=== PATIENT | male | born 1945 | race Hispanic/Latino ===

== ENCOUNTER 2018-08-12 07:55 | Day surgery (SDC) | payer OTHER ==
[2018-08-12 07:55] VITALS: BP 97/64
[~2018-08-12 07:55] MED LIST: ALLO100T PO; ASPI-555 PO; ATOR40TA71 PO; BISA5TAB12 PO; COLC0.6C3 PO; FURO40TA5 PO; GLIM4TAB3 PO; INSU300I SQ; LINA5TAB PO; METO-391 PO; METO5TAB7 PO; POTA-79 PO; SACU1TAB PO; multivitamin PO
[2018-08-12] MEDS ORDERED: SODIUM CHLORIDE 0.9% 1000ML 1,000 ML IV ONE (08:26)
--- NOTE | 2018-08-12 08:40 | NUR ---
PATIENT DRANK 3/4 2ND BOTTLE OF CONTRAST PROVIDED BY RADIOLOGY DEPARTMENT
[2018-08-12 11:00] VITALS: BP 113/70
--- NOTE | 2018-08-12 11:35 | NUR ---
patient transported via stretcher to CT with [facility]
--- NOTE | 2018-08-12 12:20 | NUR ---
back from CT,patient alert and oreinted, bilateral breath sounds clear to all lobes, no swelling noted to lower extremities, IV left hand site no redness, no signs of infiltration, denies pain
== END 2018-08-12 12:35 | disposition home or self-care (01) ==
LOC: DAH 07:55 → EDSTATUS 09:00 → DAH 12:35
PROVIDERS: ATTEND Urology
DX: R31.0 Gross hematuria (principal); M47.895 Other spondylosis, thoracolumbar region; N32.89 Other specified disorders of bladder; I11.0 Hypertensive heart disease with heart failure; I50.42 Chronic combined systolic (congestive) and diastolic (congestive) heart failure; I25.10 Atherosclerotic heart disease of native coronary artery without angina pectoris; K21.9 Gastro-esophageal reflux disease without esophagitis; E78.5 Hyperlipidemia, unspecified; E66.01 Morbid (severe) obesity due to excess calories; E11.40 Type 2 diabetes mellitus with diabetic neuropathy, unspecified; E11.65 Type 2 diabetes mellitus with hyperglycemia; M19.041 Primary osteoarthritis, right hand; E78.00 Pure hypercholesterolemia, unspecified; I48.91 Unspecified atrial fibrillation; Z87.440 Personal history of urinary (tract) infections; Z98.890 Other specified postprocedural states; Z90.49 Acquired absence of other specified parts of digestive tract; Z87.891 Personal history of nicotine dependence; Z95.810 Presence of automatic (implantable) cardiac defibrillator
CPT/HCPCS: 74178; 82948 ×2; 96360; 96361; A4606; J7030

== ENCOUNTER → 2019-10-06 | Outpatient (CLI) | payer OTHER ==
[~2019-10-06] MED LIST changes: -GLIM4TAB3 PO; +GLIM4TAB36 PO
== END | disposition home or self-care (01) ==
LOC: RAH 11:35
PROVIDERS: ATTEND Internal Medicine
DX: M50.321 Other cervical disc degeneration at C4-C5 level (principal); M47.812 Spondylosis without myelopathy or radiculopathy, cervical region; M48.02 Spinal stenosis, cervical region
CPT/HCPCS: 72040

== ENCOUNTER 2020-01-01 19:32 | Emergency (ER) | payer OTHER ==
[~2020-01-01 19:32] MED LIST changes: -ASPI-555 PO; +ASPI-556 PO
[2020-01-01 20:15] LABS: APPEARANCE,URINE Clear (CLEAR); BILIRUBIN,URINE Negative (NEGATIVE); COLOR,URINE Yellow (YELLOW); GLUCOSE, URINE (UA) Negative (NEGATIVE); KETONES,URINE Negative (NEGATIVE); LEUKOCYTE ESTERASE ,URINE Negative (NEGATIVE); NITRATE,URINE Negative (NEGATIVE); OCCULT BLOOD,URINE Negative (NEGATIVE); PROTEIN,URINE Negative (NEGATIVE); UROBILINOGEN,URINE 0.2 mg/dL (0.2-1.0)
[2020-01-01] MEDS ORDERED: ONDANSETRON ODT 4 MG TAB ONE (20:23)
[2020-01-01] MEDS ORDERED: HYDROCODONE/ACETAMINOPHEN 10/325 MG TAB ONE (20:24)
== END 2020-01-01 22:26 | disposition home or self-care (01) ==
LOC: EDH 19:32
DX: G89.29 Other chronic pain (principal); M54.9 Dorsalgia, unspecified; M47.896 Other spondylosis, lumbar region; E66.9 Obesity, unspecified; E11.9 Type 2 diabetes mellitus without complications; I25.10 Atherosclerotic heart disease of native coronary artery without angina pectoris; I10 Essential (primary) hypertension; E78.5 Hyperlipidemia, unspecified; Z88.0 Allergy status to penicillin; Z88.1 Allergy status to other antibiotic agents
CPT/HCPCS: 72131; 81003

== ENCOUNTER 2020-03-19 15:45 | Inpatient (IN) | payer OTHER ==
[2020-03-19] VITALS (7 sets, daily range): BP systolic 99–118; BP diastolic 63–76
[~2020-03-19] VITALS: Ht 170.2 cm; Wt 90.4 kg
[2020-03-19 16:23] LABS: BASOPHILS % (AUTO) 0.9 % (0.0-5.0); EOSINOPHILS % (AUTO) 2.5 % (0.0-8.0); HEMATOCRIT 47.8 % (42-54); LYMPHOCYTES % (AUTO) 27.6 % (21.0-51.0); MEAN CORPUSCULAR HEMOGLOBIN 30.8 pg (27.0-33.0); MEAN CORPUSCULAR HGB CONC 33.3 g/dL (32.0-36.0); MEAN CORPUSCULAR VOLUME 92.5 fL (79-99); MONOCYTES % (AUTO) 12.9 % (3.0-13.0); NEUTROPHILS % (AUTO) 55.6 % (40.0-77.0); PLATELET COUNT (AUTO) 121 K/uL (130-400); RED BLOOD CELL COUNT(AUTO) 5.17 MIL/uL (4.50-6.20); RED CELL DISTRIBUTION WIDTH 15.9 % (11.0-15.5); WHITE BLOOD COUNT (AUTO) 6.3 K/uL (4.8-10.8)
[2020-03-19] MEDS ORDERED: AMIODARONE HCL 50 MG/ML 3 ML VIAL ONE (16:38)
[2020-03-19 16:39] LABS: CREATININE 2.7 mg/dL (0.5-1.5); POTASSIUM 5.3 mmol/L (3.5-5.1)
[2020-03-19 16:46] LABS: B-TYPE NATRIURETIC PEPTIDE 2710 pg/mL (0-100); INR 1.74 (0.85-1.15); PARTIAL THROMBOPLASTIN TIME 32.5 SEC (26.3-35.5); PROTHROMBIN TIME 18.4 SEC (9.6-11.6)
[2020-03-19 16:47] LABS: ALBUMIN 3.4 g/dL (3.5-5.0); BILIRUBIN,TOTAL 2.3 mg/dL (0.2-1.0); TOTAL PROTEIN, SERUM 6.9 g/dL (6.0-8.3)
[2020-03-19] MEDS ORDERED: DEXTROSE 5%-WATER 100 ML IV ONE (16:47)
[2020-03-19] MEDS ORDERED: AMIODARONE HCL 900 MG in DEXTROSE 5%-WATER 500 ML IV NR (17:00)
[2020-03-19] MEDS ORDERED: CALCIUM GLUCONATE 1 GM/10 ML VIAL IV ONE (17:23)
[2020-03-19] MEDS ORDERED: SODIUM CHLORIDE 0.9% 250 ML IV ONE (17:24)
[2020-03-19] MEDS ORDERED: DOPAMINE 800MG/D5 250ML 250 ML IV ONE (17:24)
[2020-03-19] MEDS ORDERED: FUROSEMIDE 10 MG/ML 2ML VIAL ONE (17:50)
[2020-03-19] MEDS ORDERED: EPINEPHRINE 2 MG in SODIUM CHLORIDE 0.9% 250 ML IV SCH (18:15)
[2020-03-19] MEDS: INSULIN GLARGINE 100 UNITS/ML 10 ML VIAL SQ SCH (21:00)
[2020-03-19] MEDS ORDERED: METOPROLOL TARTRATE 25 MG TAB PO SCH (21:00)
[2020-03-19] MEDS ORDERED: FUROSEMIDE 10 MG/ML 4ML VIAL IVP SCH (21:00)
[2020-03-19] MEDS ORDERED: INSULIN GLARGINE 100 UNITS/ML 10 ML VIAL SQ SCH ×2 (21:00)
[2020-03-19] MEDS: HEPARIN SODIUM 5000UNIT/ML 1ML VIAL SQ SCH (21:00)
[2020-03-19] MEDS: INSULIN HUMULIN R 100 UNIT/ML 3ML SQ SCH (21:00)
[2020-03-20] VITALS (20 sets, daily range): BP systolic 92–131; BP diastolic 53–85
--- NOTE | 2020-03-20 | NUR ---
Admitted from ER at 2130. Oriented to room, call light, bed controls. Initial assessment completed.
[2020-03-20 03:56] LABS: BASOPHILS % (AUTO) 0.8 % (0.0-5.0); EOSINOPHILS % (AUTO) 2.6 % (0.0-8.0); HEMATOCRIT 48.6 % (42-54); MEAN CORPUSCULAR HEMOGLOBIN 30.8 pg (27.0-33.0); MEAN CORPUSCULAR HGB CONC 33.1 g/dL (32.0-36.0); MEAN CORPUSCULAR VOLUME 92.9 fL (79-99); MONOCYTES % (AUTO) 9.8 % (3.0-13.0); NEUTROPHILS % (AUTO) 60.3 % (40.0-77.0); PLATELET COUNT (AUTO) 113 K/uL (130-400); RED BLOOD CELL COUNT(AUTO) 5.23 MIL/uL (4.50-6.20); RED CELL DISTRIBUTION WIDTH 16.2 % (11.0-15.5); WHITE BLOOD COUNT (AUTO) 6.6 K/uL (4.8-10.8)
[2020-03-20 04:06] LABS: CREATININE 2.7 mg/dL (0.5-1.5); POTASSIUM 3.8 mmol/L (3.5-5.1)
[2020-03-20] MEDS ORDERED: DEXTROSE 50%-WATER 50 ML DISP.SYRIN IV ONE (06:23)
[2020-03-20] MEDS: INSULIN HUMULIN R 100 UNIT/ML 3ML SQ SCH ×4 (06:31→19:42)
--- NOTE | 2020-03-20 06:40 | NUR ---
Glucometer 53. Amp of D50W given IV into left AC 18g IV after blood return witnessed by Pb RN. Asked patient how he feels. Stated "real good!" Call placed to hospitalist navigation officer Dr Iglesias to inform him. Call back received. Patient to be started on Hypoglycemic protocol.
[2020-03-20] MEDS ORDERED: GLUCAGON 1MG KIT 1 MG ML IM PRN (07:00)
[2020-03-20] MEDS ORDERED: DEXTROSE 50%-WATER 50 ML DISP.SYRIN IV PRN (07:00)
[2020-03-20] MEDS ORDERED: FUROSEMIDE 10 MG/ML 2ML VIAL IV SCH (08:00)
[2020-03-20] MEDS: HEPARIN SODIUM 5000UNIT/ML 1ML VIAL SQ SCH ×3 (09:00→20:32)
[2020-03-20] MEDS ORDERED: DILTIAZEM HCL 5 MG/ML 10 ML VIAL IV PRN ×2 (10:15→11:00)
[2020-03-20] MEDS ORDERED: DILTIAZEM 125MG+100 ML NS 125 ML IV PRN (10:15)
[2020-03-20] MEDS: FUROSEMIDE 10 MG/ML 4ML VIAL IV SCH ×2 (11:19→21:16)
[2020-03-20 11:38] LABS: TROPONIN I 0.05 ng/mL (0.00-0.06)
[2020-03-20 12:04] LABS: APPEARANCE,URINE Clear (CLEAR); BILIRUBIN,URINE Negative (NEGATIVE); COLOR,URINE Yellow (YELLOW); GLUCOSE, URINE (UA) Negative (NEGATIVE); KETONES,URINE Negative (NEGATIVE); LEUKOCYTE ESTERASE ,URINE Negative (NEGATIVE); NITRATE,URINE Negative (NEGATIVE); OCCULT BLOOD,URINE Large (NEGATIVE); PROTEIN,URINE Negative (NEGATIVE); UROBILINOGEN,URINE 0.2 mg/dL (0.2-1.0)
[2020-03-20 12:12] LABS: BACTERIA,URINE Rare /HPF (None Seen); SQUAMOUS EPITHELIAL CELL,UR Rare /HPF (0-2)
--- NOTE | 2020-03-20 18:07 | NUR ---
INITIAL: Unable to speak w pt. Called pt's spouse on face sheet. Prior to admission pt was living w his spouse. Was using a rollator for ambulation and required assistance w ADLs. Pt has at home a nebulizer, cpap, wc and sh chair. Per spouse she was driving where needed. States [place] but is not sure pt will be open to it. CM to continue to follow and wait for Md recommendations. Addendum: 03/21/20 at 1813 by OANH ARVIZU Amended: Links added.
[2020-03-20] MEDS: INSULIN GLARGINE 100 UNITS/ML 10 ML VIAL SQ SCH (20:31)
[2020-03-21] VITALS (28 sets, daily range): BP systolic 92–118; BP diastolic 51–77
[2020-03-21 03:40] LABS: BASOPHILS % (AUTO) 0.5 % (0.0-5.0); EOSINOPHILS % (AUTO) 2.1 % (0.0-8.0); HEMATOCRIT 49.2 % (42-54); LYMPHOCYTES % (AUTO) 14.5 % (21.0-51.0); MEAN CORPUSCULAR HEMOGLOBIN 30.2 pg (27.0-33.0); MEAN CORPUSCULAR HGB CONC 32.3 g/dL (32.0-36.0); MEAN CORPUSCULAR VOLUME 93.5 fL (79-99); MONOCYTES % (AUTO) 11.3 % (3.0-13.0); NEUTROPHILS % (AUTO) 71.1 % (40.0-77.0); PLATELET COUNT (AUTO) 112 K/uL (130-400); RED BLOOD CELL COUNT(AUTO) 5.26 MIL/uL (4.50-6.20); RED CELL DISTRIBUTION WIDTH 16.6 % (11.0-15.5); WHITE BLOOD COUNT (AUTO) 8.1 K/uL (4.8-10.8)
[2020-03-21 03:57] LABS: B-TYPE NATRIURETIC PEPTIDE 2410 pg/mL (0-100)
[2020-03-21 03:58] LABS: ALBUMIN 3.4 g/dL (3.5-5.0); BILIRUBIN,TOTAL 2.7 mg/dL (0.2-1.0); CREATININE 2.3 mg/dL (0.5-1.5); MAGNESIUM 2.3 mg/dL (1.80-2.40); PHOSPHORUS 4.1 mg/dL (2.5-4.9); POTASSIUM 3.6 mmol/L (3.5-5.1); TOTAL PROTEIN, SERUM 6.3 g/dL (6.0-8.3)
[2020-03-21] MEDS: INSULIN HUMULIN R 100 UNIT/ML 3ML SQ SCH ×4 (05:23→20:05)
[2020-03-21] MEDS: HEPARIN SODIUM 5000UNIT/ML 1ML VIAL SQ SCH ×3 (08:32→20:12)
[2020-03-21] MEDS ORDERED: POTASSIUM CHLORIDE 20 MEQ ERTAB PO SCH (08:45)
[2020-03-21 09:11] LABS: ABG BASE EXCESS 2.4 mmol/L (-2.0-3.0); ABG HCO3 26.7 mmol/L (21.0-28.0); ABG OXYGEN SATURATION 97.9 % (95.0-99.0); ABG PCO2 41 mmHg (35-48)
[2020-03-21] MEDS: FUROSEMIDE 10 MG/ML 4ML VIAL IV SCH ×2 (09:43→20:10)
[2020-03-21] MEDS: INSULIN GLARGINE 100 UNITS/ML 10 ML VIAL SQ SCH (20:11)
[2020-03-22] VITALS (12 sets, daily range): BP systolic 104–169; BP diastolic 57–73
[2020-03-22 03:36] LABS: BASOPHILS % (AUTO) 0.8 % (0.0-5.0); EOSINOPHILS % (AUTO) 3.8 % (0.0-8.0); HEMATOCRIT 48.6 % (42-54); LYMPHOCYTES % (AUTO) 21.1 % (21.0-51.0); MEAN CORPUSCULAR HEMOGLOBIN 30.6 pg (27.0-33.0); MEAN CORPUSCULAR HGB CONC 32.1 g/dL (32.0-36.0); MEAN CORPUSCULAR VOLUME 95.3 fL (79-99); MONOCYTES % (AUTO) 12.5 % (3.0-13.0); NEUTROPHILS % (AUTO) 61.5 % (40.0-77.0); PLATELET COUNT (AUTO) 104 K/uL (130-400); RED CELL DISTRIBUTION WIDTH 16.5 % (11.0-15.5); WHITE BLOOD COUNT (AUTO) 6.7 K/uL (4.8-10.8)
[2020-03-22 03:48] LABS: POTASSIUM 3.6 mmol/L (3.5-5.1)
[2020-03-22] MEDS: INSULIN HUMULIN R 100 UNIT/ML 3ML SQ SCH ×4 (05:15→21:00)
[2020-03-22] MEDS: FUROSEMIDE 10 MG/ML 4ML VIAL IV SCH ×2 (08:14→21:00)
[2020-03-22] MEDS: HEPARIN SODIUM 5000UNIT/ML 1ML VIAL SQ SCH ×2 (08:18→13:39)
[2020-03-22] MEDS ORDERED: LACTULOSE 20 GM/30 ML UDCUP PO SCH (15:00)
--- NOTE | 2020-03-22 16:30 | NUR ---
Dr Leiva at bedside, new orders given.
--- NOTE | 2020-03-22 17:59 | NUR ---
Initiated bladder training at this time, clamped plummer
--- NOTE | 2020-03-22 18:45 | NUR ---
Attempted to call report, as per report report, room not clean yet. Charge nurse made aware
--- NOTE | 2020-03-22 20:19 | NUR ---
TRANSFER MOVED BY WHEELCHAIR TO [id number] AFTER REPORT CALLED TO RECEIVING NURSE.
[2020-03-23] MEDS: HEPARIN SODIUM 5000UNIT/ML 1ML VIAL SQ SCH ×2 (00:21→10:38)
[2020-03-23] MEDS: INSULIN GLARGINE 100 UNITS/ML 10 ML VIAL SQ SCH (00:22)
[2020-03-23 03:38] LABS: BASOPHILS % (AUTO) 0.9 % (0.0-5.0); EOSINOPHILS % (AUTO) 7.1 % (0.0-8.0); HEMATOCRIT 45.9 % (42-54); LYMPHOCYTES % (AUTO) 22.9 % (21.0-51.0); MEAN CORPUSCULAR HEMOGLOBIN 30.7 pg (27.0-33.0); MEAN CORPUSCULAR HGB CONC 32.2 g/dL (32.0-36.0); MEAN CORPUSCULAR VOLUME 95.2 fL (79-99); NEUTROPHILS % (AUTO) 58.6 % (40.0-77.0); PLATELET COUNT (AUTO) 106 K/uL (130-400); RED BLOOD CELL COUNT(AUTO) 4.82 MIL/uL (4.50-6.20); RED CELL DISTRIBUTION WIDTH 16.5 % (11.0-15.5); WHITE BLOOD COUNT (AUTO) 5.8 K/uL (4.8-10.8)
[2020-03-23 03:48] LABS: CREATININE 1.7 mg/dL (0.5-1.5); POTASSIUM 3.8 mmol/L (3.5-5.1)
[2020-03-23 04:00] VITALS: BP 113/69
--- NOTE | 2020-03-23 06:00 | NUR ---
PATIENT AWAKE AND ALERT. NO COMPLAINTS OF PAIN VOICED AT THIS TIME. VITALS STABLE. AFEBRILE. RESP EVEN AND UNLABORED. NO SOB NOTED. ON ROOM AIR. BLOOD SUGAR 73. UP WITH ASSISTANCE. INGRAM CATHETER DISCONTINUED, PATIENT IS DUE TO VOID. NO SIGNS OF DISTRESS NOTED. CALL LIGHT WITHIN REACH. WILL CONTINUE TO BE OBSERVED. Addendum: 03/23/20 at 0645 by DAMIEN GROSSMAN RN RN Amended: Links added.
[2020-03-23] MEDS: INSULIN HUMULIN R 100 UNIT/ML 3ML SQ SCH ×2 (07:30→11:30)
[2020-03-23 08:04] VITALS: BP 112/65
[2020-03-23] MEDS ORDERED: DOCUSATE SODIUM 100 MG CAP PO SCH (09:00)
[2020-03-23] MEDS ORDERED: METO-408 PO (10:02)
[2020-03-23] MEDS ORDERED: ATOR40TA71 PO (10:02)
[2020-03-23] MEDS ORDERED: TORS100T16 PO (10:02)
[2020-03-23] MEDS: FUROSEMIDE 10 MG/ML 4ML VIAL IV SCH (10:37)
[2020-03-23 11:24] VITALS: BP 92/72
[2020-03-23] MEDS ORDERED: TAMS-1 PO (13:59)
--- NOTE | 2020-03-23 15:30 | NUR ---
NOTE DISCHARGE INSTRUCTIONS GIVEN TO PATIENT. REFER TO DC SUMMARY FOR DETAILS. PATIENT TAKEN DOWN TO E.R. ENTRANCE AND I SPOKE TO HIS AND WENT OVER DC ORDERS WITH HER WELL THE MED REC AND FOLLOW UPS. BOTH VERBALIZED UNDERSTANDING. CARDIOLOGY, FIELD INSTRUCTOR AND PRIMARY M.D. ALL CLEARED HIM FOR DC. VS WERE STABLE ALL MORNING AND HIS O2 SATURATION ON ROOM AIR WAS 100% ALL MORNING.
--- NOTE | 2020-03-23 15:35 | NUR ---
1513 patient signed IM Letter, I faxed IM Letter to [phone] and placed in chart under consent tab.
== END 2020-03-23 16:35 | disposition home or self-care (01) | DRG 291 ==
LOC: EDH 15:45 → EDHIP 17:22 → DAHIP 21:46 → 3AH 03-22 20:22
PROVIDERS: ADMIT Internal Medicine; ATTEND Internal Medicine
PROC: 4B02XSZ Measurement of Cardiac Pacemaker, External Approach (ICD-10-PCS; principal; 2020-03-19)
DX: I13.0 Hypertensive heart and chronic kidney disease with heart failure and stage 1 through stage 4 chronic kidney disease, or unspecified chronic kidney disease (principal); J96.01 Acute respiratory failure with hypoxia; R57.0 Cardiogenic shock; I50.43 Acute on chronic combined systolic (congestive) and diastolic (congestive) heart failure; N17.9 Acute kidney failure, unspecified; I42.9 Cardiomyopathy, unspecified; I42.0 Dilated cardiomyopathy; E87.70 Fluid overload, unspecified; I50.9 Heart failure, unspecified; E11.9 Type 2 diabetes mellitus without complications; E11.22 Type 2 diabetes mellitus with diabetic chronic kidney disease; E78.5 Hyperlipidemia, unspecified; I25.10 Atherosclerotic heart disease of native coronary artery without angina pectoris; I25.5 Ischemic cardiomyopathy; I48.91 Unspecified atrial fibrillation; N18.9 Chronic kidney disease, unspecified; Z79.4 Long term (current) use of insulin; Z79.899 Other long term (current) drug therapy; Z82.49 Family history of ischemic heart disease and other diseases of the circulatory system; Z83.3 Family history of diabetes mellitus; Z86.79 Personal history of other diseases of the circulatory system; Z87.891 Personal history of nicotine dependence; Z95.5 Presence of coronary angioplasty implant and graft; Z95.810 Presence of automatic (implantable) cardiac defibrillator; Z88.0 Allergy status to penicillin; Z88.1 Allergy status to other antibiotic agents; Z20.828 Contact with and (suspected) exposure to other viral communicable diseases
CPT/HCPCS: 36415; 36600; 71045; 80048; 80053; 81001; 82550; 82803; 82948; 83690; 83735; 83874; 83880; 84100; 84145; 84484; 85025; 85610; 85730; 87040; 87088; 87426; 93005; 93306; 93356; 99291; 99292; A6250; G0378; J0171; J0282; J0610; J1265; J1644; J1940; J7050; J7060; J7070; U0003